=== PATIENT | male | born 1995 | race Caucasian/White ===

== ENCOUNTER → 2021-03-11 | Outpatient (REF) | LOC: M LABSMTC 13:34 | PROVIDERS: ATTEND Family Medicine | DX: Z11.52 Encounter for screening for COVID-19 (principal); Z20.822 Contact with and (suspected) exposure to COVID-19 ==

== ENCOUNTER → 2024-03-23 | Outpatient (CLI) | payer BC | LOC: M RAD 15:05 | PROVIDERS: ATTEND Internal Medicine | DX: E04.9 Nontoxic goiter, unspecified (principal) ==